=== PATIENT | female | born 1985 | race Caucasian/White ===

== ENCOUNTER 2016-07-13 16:12 | Emergency (ER) | payer SELFPAY ==
[~2016-07-13] VITALS: Ht 170.2 cm; Wt 79.0 kg
[~2016-07-13 16:12] MED LIST: ADDE10 PO; ADDE20 PO
[2016-07-13 16:15] VITALS: BP 146/92; PULSE 100; RESP 16; TEMP 97.9; O2SAT 99
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
[2016-08-07] MEDS ORDERED: ADDE20 PO (16:14)
[2016-08-07] MEDS ORDERED: ADDE10 PO (16:14)
[2016-09-15] MEDS ORDERED: ADDE10 PO (12:58)
[2016-09-15] MEDS ORDERED: ADDE20 PO (12:58)
[2016-09-29] MEDS ORDERED: ADDE20 PO (14:13)
[2016-09-29] MEDS ORDERED: BUPR75TA PO (14:16)
== END 2016-07-13 16:55 | disposition home or self-care (01) ==
LOC: PHED 16:12
DX: Z71.1 Person with feared health complaint in whom no diagnosis is made (principal)
CPT/HCPCS: 84703; 99282

== ENCOUNTER 2016-08-14 16:01 | Emergency (ER) | payer MEDICAID, OTHER ==
[~2016-08-14] VITALS: Ht 167.6 cm; Wt 79.6 kg
[2016-08-14 16:07] VITALS: BP 130/80; PULSE 99; RESP 16; TEMP 99.4; O2SAT 98
--- NOTE | 2016-08-14 18:39 | PD ---
HPI Chief Complaint: Cold / Flu Symptoms Time Seen by Provider: 18:39 Travel History International Travel<30 days: No Contact w/Intl Traveler<30days: No Traveled to known affect area: No History of Present Illness HPI 31-year-old female presents the emergency department with sudden onset fever, body aches, congestion, and cough. States she felt well until yesterday when she started to have upper extremity symptoms but today she felt much worse since this morning with increased body aches, fever, chills, and cough. She has had nausea, but no vomiting or diarrhea. She denies abdominal pain. She has no chest pain or shortness of breath. She is allergic to amoxicillin and penicillin. PFSH Past Medical History ADD: Yes ADHD: Yes Depression: Yes Diabetes: No Diminished Hearing: No Influenza Vaccination: No ?: Not LMP: IMPLANT Menopausal: No : 1 Para: 1 Past Surgical History Surgical History: No Previous Surgery Social History Alcohol Use: Yes (COUPLE TIMES PER MONTH) Tobacco Use: Yes ("WHEN SHE DRINKS") Substance Use: Yes (marijuana for pain and depression) Allergies-Medications (Allergen,Severity, Reaction): Coded Allergies: Amoxicillin (Verified Allergy, Severe, Itching, 08/14/16) Penicillin (Verified Allergy, Severe, RASH, 08/14/16) Reported Meds & Prescriptions Reported Meds & Active Scripts Active Adderall (Amphetamine-Dextroamphetamine) 20 Mg Tab 20 Mg PO DAILY Avoid late evening doses. Space doses at least 4 to 6 hours if more than once/day dosing. Adderall (Amphetamine-Dextroamphetamine) 10 Mg Tab 10 Mg PO DAILY Review of Systems Except as stated in HPI: all other systems reviewed are Neg General / Constitutional: Positive: Fever, Chills Eyes: No: Visual changes HENT: Positive: Rhinitis, Rhinorrhea, Congestion, No: Headaches, Vertigo, Lightheadedness, Sore Throat, Neck Stiffness, Neck Pain, Ear Discharge, Earache Cardiovascular: No: Chest Pain or Discomfort Respiratory: Positive: Cough, No: Shortness of Breath, Wheezing, Sneezing Gastrointestinal: Positive: Nausea, No: Vomiting, Diarrhea, Abdominal Pain Genitourinary: No: Dysuria Musculoskeletal: No: Pain Skin: No Rash Neurologic: No: Weakness Psychiatric: No: Depression Endocrine: No: Polydipsia Hematologic/Lymphatic: No: Easy Bruising Physical Exam Narrative GENERAL: Patient appears ill but not septic. SKIN: Warm and dry. Normal color. Normal turgor. HEAD: Atraumatic. Normocephalic. EYES: Pupils equal and round. No scleral icterus. No injection or drainage. ENT: No nasal bleeding or discharge. Mucous membranes pink and moist. Pharynx shows some erythematous cobblestoning in posterior pharynx with no significant lymphadenopathy or postnasal drip. No sinus tenderness to palpation. TMs are clear bilaterally. NECK: Trachea midline. Supple and nontender, without significant lymphadenopathy. CARDIOVASCULAR: Regular rate and rhythm. No murmurs gallops or rubs. RESPIRATORY: No accessory muscle use. Clear to auscultation. Breath sounds equal bilaterally. GASTROINTESTINAL: Abdomen soft, non-tender, nondistended. Hepatic and splenic margins not palpable. No CVA tenderness. MUSCULOSKELETAL: Extremities without clubbing, cyanosis, or edema. No obvious deformities. NEUROLOGICAL: Awake and alert. No obvious cranial nerve deficits. Motor grossly within normal limits. Five out of 5 muscle strength in the arms and legs. Normal speech. PSYCHIATRIC: Appropriate mood and affect; insight and judgment normal. Data Data Last Documented VS Vital Signs Date Time Temp Pulse Resp B/P Pulse Ox O2 Delivery O2 Flow Rate FiO2 08/14/16 16:07 99.4 99 16 130/80 98 Orders Acetaminophen (Tylenol) (08/14/16 19:00) Influenzae A/B Antigen (08/14/16 18:46) [facility] Medical Decision Making Medical Screen Exam Complete: Yes Emergency Medical Condition: Yes Differential Diagnosis Viral illness. Febrile illness. Influenza. Narrative Course Patient is medically stable at time of exam. Patient is given 650 mg Tylenol by mouth. Rapid influenza sent to the lab. Rapid influenza test is negative. I'm going to empirically treat the patient With Tamiflu 75 mg twice a day for 5 days. Work note is given as well. Patient is to rest and push fluids and follow up if symptoms do not improve or worsen as discussed per Diagnosis Primary Impression: Influenza Referrals: Primary Care Physician Patient Instructions: General Instructions, Influenza (DC) Departure Forms: Work Release Enter return to work date: August 16, 2016 Additional Instructions: Rapid influenza test is negative. I'm going to empirically treat the patient With Tamiflu 75 mg twice a day for 5 days. Work note is given as well. Patient is to rest and push fluids and follow up if symptoms do not improve or worsen as discussed per Med/Other Pt SpecificInfo: Prescription(s) given Scripts Oseltamivir (Tamiflu)75 Mg Cap75 Mg PO BID 5 Days Ref 0 Prov:Tamir Wynne MD 08/14/16 Disposition: 01 DISCHARGE HOME Condition: Stable Collin Hilton August 14, 2016 18:39
[2016-08-14] MEDS ORDERED: ACETAMINOPHEN 325 MG TAB PO ONE (19:00)
[2016-08-14] MEDS ORDERED: OSEL75 PO (19:37)
[2016-09-15] MEDS ORDERED: ADDE10 PO (12:58)
[2016-09-15] MEDS ORDERED: ADDE20 PO (12:58)
[2016-09-29] MEDS ORDERED: ADDE20 PO (14:13)
[2016-09-29] MEDS ORDERED: BUPR75TA PO (14:16)
== END 2016-08-14 19:48 | disposition home or self-care (01) ==
LOC: PHED 16:01 → PHEFT 19:48
DX: J11.1 Influenza due to unidentified influenza virus with other respiratory manifestations (principal); R50.9 Fever, unspecified; M79.1 Myalgia; R05 Cough; R11.0 Nausea; Z72.0 Tobacco use; Z86.59 Personal history of other mental and behavioral disorders
CPT/HCPCS: 87804; 99283